=== PATIENT | female | born 1990 | race Caucasian/White ===

== ENCOUNTER → 2019-08-07 12:52 | Observation (INO) | END | disposition home or self-care (01) | LOC: 1NENULAB | PROVIDERS: ADMIT Advanced Practice Midwife; ATTEND Advanced Practice Midwife ==

== ENCOUNTER 2019-09-04 12:29 | Inpatient (IN) ==
[~2019-09-04 12:29] MED LIST: Famotidine 20 MG/2 ML VIAL IVP PRN; Metoclopramide 10 MG/2 ML VIAL IVP PRN; Naloxone 0.4 MG/ML INJ IVP PRN
[2019-09-04] MEDS ORDERED: Ondansetron 4 MG/2 ML VIAL IVP PRN ×2 (12:35→19:32)
[2019-09-04] MEDS ORDERED: *HR* FentaNYL (PF) 100 MCG/2 ML VIAL IVP PRN (12:35)
[2019-09-04 13:54] LABS: Basophils % 0.4 %; Eosinophils # 0.1 K/mcL (0.0-0.6); Eosinophils % 0.5 %; Hematocrit 36.9 % (35.3-44.9); Hemoglobin 12.2 g/dL (11.5-15.4); Immature Granulocytes % 1.1 % (0-4); Lymphocytes # 1.5 K/mcL (0.6-4.6); Lymphocytes % 14.7 %; Mean Corpuscular HGB Conc 33.1 g/dL (31.6-35.5); Mean Corpuscular Hemoglobin 30.4 pg (28.0-33.3); Mean Platelet Volume 10.7 fL (9.4-12.4); Monocytes # 0.5 K/mcL (0.0-1.3); Platelet Count 242 K/mcL (140-400); Red Blood Count 4.01 M/mcL (3.82-4.97); Segmented Neutrophils % 78.3 %; White Blood Count 10.2 K/mcL (4.3-11.1)
[2019-09-04] MEDS ORDERED: miSOPROStoL 100 MCG TABLET PO STA (14:02)
[2019-09-04 14:04] LABS: Amphetamine Screen,Urine Negative ng/mL (Cutoff=1000); Barbiturate Screen,Urine Negative ng/mL (Cutoff=200); Benzodiazepines Screen,Urine Negative ng/mL (Cutoff=200); Cannabinoid Screen,Urine Negative ng/mL (Cutoff = 50); Cocaine Screen,Urine Negative ng/mL (Cutoff= 300); Opiate Screen,Urine Negative ng/mL (Cutoff=300); Phencyclidine Screen,Urine Negative ng/mL (Cutoff=25)
[2019-09-04] MEDS ORDERED: miSOPROStoL 25 MCG TABLET PO ONE (14:15)
[2019-09-04] MEDS: Ringers Solution, Lactated 1,000 ML IVC SCH ×2 (14:32→22:28)
[2019-09-04] MEDS ORDERED: Oxytocin 20 units/ LR 1000 mL 20 UNIT/1,000 ML BAG IVC SCH (18:45)
[2019-09-04] MEDS ORDERED: EPHEDrine 50 MG/ML VIAL IVP PRN (19:32)
[2019-09-04] MEDS ORDERED: *HR* FentaNYL (PF) 100 MCG/2 ML VIAL EP ONE (19:32)
[2019-09-04] MEDS ORDERED: Naloxone 0.4 MG/ML INJ IVP PRN (19:32)
[2019-09-04] MEDS ORDERED: Ropivacaine/PF 0.2% 20 ML VIAL EP ONE (19:32)
[2019-09-04] MEDS ORDERED: Epidural Premix (fent/bupiv) 110 ML EP SCH (19:45)
[2019-09-04] MEDS ORDERED: *HR* FentaNYL (PF) 100 MCG/2 ML VIAL ONE (20:40)
[2019-09-04] MEDS ORDERED: Ropivacaine/PF 0.2% 20 ML VIAL ONE (20:40)
[2019-09-05] MEDS: Ringers Solution, Lactated 1,000 ML IVC SCH (01:23)
[2019-09-05] MEDS ORDERED: Lidocaine 1% 20 ML MDV ONE (04:44)
[2019-09-05] MEDS ORDERED: Oxytocin 20 units/ LR 1000 mL 20 UNIT/1,000 ML BAG IVC SCH (07:55)
[2019-09-05] MEDS ORDERED: Acetaminophen 325 MG TABLET PO PRN (07:55)
[2019-09-05] MEDS ORDERED: Lanolin 7 G OINT...G. TP PRN (07:55)
[2019-09-05] MEDS ORDERED: *HR* HYDROcodone/Acet 5/325 mg TABLET PO PRN (07:55)
[2019-09-05] MEDS ORDERED: Measles/Mumps/Rubella Vacc 0.5 ML VIAL SQ PRN (07:55)
[2019-09-05] MEDS ORDERED: Ibuprofen 600 MG TABLET PO PRN (07:55)
[2019-09-05] MEDS ORDERED: Benzocaine/Menthol 56 GM AEROSOL SPRAY TP PRN (07:55)
[2019-09-05] MEDS: polyethylene glycoL 3350 17 GM POWD.PACK PO SCH (08:11)
[2019-09-05] MEDS: Prenatal Vit/FA 1 EACH TABLET PO SCH (08:11)
[2019-09-06 06:22] LABS: Basophils # 0.1 K/mcL (0.0-0.2); Basophils % 0.3 %; Eosinophils # 0.1 K/mcL (0.0-0.6); Eosinophils % 0.4 %; Hematocrit 28.5 % (35.3-44.9); Lymphocytes # 2.2 K/mcL (0.6-4.6); Lymphocytes % 13.5 %; Mean Corpuscular Hemoglobin 30.6 pg (28.0-33.3); Mean Corpuscular Volume 92.8 fL (83.0-100.0); Mean Platelet Volume 10.9 fL (9.4-12.4); Monocytes # 1.1 K/mcL (0.0-1.3); Monocytes % 6.6 %; Neutrophils # 12.9 K/mcL (1.6-8.9); Platelet Count 193 K/mcL (140-400); Red Blood Count 3.07 M/mcL (3.82-4.97); Red Cell Distribution Width 13.4 % (11.5-14.5); Segmented Neutrophils % 78.2 %
[2019-09-06 06:24] LABS: Hemoglobin 9.4 g/dL (11.5-15.4); White Blood Count 16.5 K/mcL (4.3-11.1)
[2019-09-06] MEDS: polyethylene glycoL 3350 17 GM POWD.PACK PO SCH (08:24)
[2019-09-06] MEDS: Prenatal Vit/FA 1 EACH TABLET PO SCH (08:24)
[2019-09-06 08:27] VITALS: BP 102/68
== END 2019-09-06 13:47 | disposition home or self-care (01) | DRG 542 ==
LOC: 1NENULAB → 1NENUOBS 09-05 07:54
PROVIDERS: ADMIT Registered Nurse; ATTEND Registered Nurse